=== PATIENT | male | born 1985 | race Caucasian/White ===

== ENCOUNTER 2017-03-22 01:03 | Emergency (ER) | payer SELFPAY ==
[~2017-03-22] VITALS: Ht 170.2 cm; Wt 100.0 kg
[2017-03-22] MEDS ORDERED: MAGNESIUM/ALUMINUM HYDROXIDE/SIMETHICONE 30ML UDC PO STA (01:30)
[2017-03-22] MEDS ORDERED: VISCOUS LIDOCAINE 2% 15 ML UDC PO STA (01:30)
[2017-03-22 01:44] LABS: CLARITY URINE CLOUDY (CLEAR); COLOR URINE YELLOW (YELLOW); GLUCOSE URINE NEGATIVE (NEGATIVE); KETONES URINE NEGATIVE (NEGATIVE); LEUKOCYTE ESTERASE URINE NEGATIVE (NEGATIVE); NITRITE URINE NEGATIVE (NEGATIVE); OCCULT BLOOD URINE NEGATIVE (NEGATIVE); PROTEIN URINE NEGATIVE (NEGATIVE); SPECIFIC GRAVITY URINE 1.029 (1.005-1.030)
[2017-03-22 01:51] LABS: BASOPHILS % 0.7 % (0.0-2.0); EOSINOPHILS % 4.8 % (0.0-5.0); HEMATOCRIT. 43.1 % (42.0-52.0); HEMOGLOBIN. 14.4 g/dL (14.0-18.0); LYMPHOCYTES % 39.4 % (20.0-50.0); MEAN CORPUSCULAR VOLUME 89.4 fL (80.0-94.0); MEAN PLATELET VOLUME 8.4 fl (7.4-10.4); NEUTROPHILS % 48.1 % (40.0-76.0); PLATELET 206 x1000/uL (130-400); RED BLOOD CELL COUNT 4.82 mill/uL (4.7-6.1)
[2017-03-22 01:56] LABS: CHLORIDE 106 mEq/L (98-107)
[2017-03-22 02:09] LABS: CARBON DIOXIDE 29 mEq/L (21-32)
[2017-03-22 03:25] VITALS: BP 127/79
== END 2017-03-22 03:30 | disposition home or self-care (01) ==
LOC: ER 01:03
DX: K21.9 Gastro-esophageal reflux disease without esophagitis (principal)
CPT/HCPCS: 36415; 80053; 81001; 83690; 85025; 99284

== ENCOUNTER 2017-04-05 18:13 | Emergency (ER) | payer SELFPAY ==
[~2017-04-05] VITALS: Ht 180.3 cm; Wt 92.0 kg
[2017-04-05 18:34] VITALS: BP 182/98
== END 2017-04-05 19:30 | disposition left against medical advice (07) ==
LOC: ER 18:13
DX: R10.9 Unspecified abdominal pain (principal); Z53.21 Procedure and treatment not carried out due to patient leaving prior to being seen by health care provider

== ENCOUNTER 2017-04-10 03:36 | Emergency (ER) | payer SELFPAY ==
[~2017-04-10] VITALS: Ht 180.3 cm; Wt 98.0 kg
[2017-04-10 09:41] VITALS: BP 144/97
== END 2017-04-10 09:47 | disposition home or self-care (01) ==
LOC: ER 04:07
DX: K52.9 Noninfective gastroenteritis and colitis, unspecified (principal)
CPT/HCPCS: 99283

== ENCOUNTER 2023-09-18 12:30 | Emergency (ER) | payer MEDICAID ==
[~2023-09-18] VITALS: Ht 177.8 cm; Wt 114.0 kg
[2023-09-18 12:35] VITALS: O2SAT 98
[2023-09-18 14:03] VITALS: PULSE 73; TEMP 98.1
[2023-09-18] MEDS: ACETAMINOPHEN 325MG TABLET PO ONE (14:03)
[2023-09-18] MEDS: IBUPROFEN 400MG TABLET PO ONE (14:03)
[2023-09-18 14:04] VITALS: BP 145/74; RESP 19
[2023-09-18] MEDS: LIDOCAINE 5% PATCH TOP SCH (14:04)
[2023-09-18] MEDS ORDERED: LIDO700A30 TP (14:10)
== END 2023-09-18 14:22 | disposition home or self-care (01) ==
LOC: ER 12:30
DX: R07.81 Pleurodynia (principal); K21.9 Gastro-esophageal reflux disease without esophagitis
CPT/HCPCS: 71111; 99284

== ENCOUNTER 2024-01-22 17:13 | Emergency (ER) | payer OTHER ==
[~2024-01-22] VITALS: Ht 177.8 cm; Wt 109.0 kg
[~2024-01-22 17:13] MED LIST: LIDO700A30 TP
[2024-01-22 17:21] VITALS: TEMP 98.4; O2SAT 98
[2024-01-22 19:32] LABS: BASOPHILS % 0.6 % (0.0-2.0); EOSINOPHILS % 4.3 % (0.0-5.0); HEMATOCRIT. 41.3 % (42.0-52.0); LYMPHOCYTES % 20.4 % (20.0-50.0); MEAN CORPUSCULAR HEMOGLOBIN 31.2 pg (28.0-32.0); MEAN CORPUSCULAR VOLUME 91.9 fL (80.0-94.0); MEAN PLATELET VOLUME 8.6 fl (7.4-10.4); MONOCYTES % 6.9 % (2.0-8.0); NEUTROPHILS % 67.8 % (40.0-76.0); PLATELET 196 x1000/uL (130-400); RED BLOOD CELL COUNT 4.49 mill/uL (4.7-6.1); RED CELL DISTRIBUTION WIDTH 13.8 % (11.6-14.6); WHITE BLOOD COUNT 6.9 x1000/uL (4.5-11.0)
[2024-01-22 19:39] LABS: CHLORIDE 107 mEq/L (98-107); POTASSIUM 4.1 mEq/L (3.5-5.1); SODIUM 139 mEq/L (136-145)
[2024-01-22 19:40] LABS: CALCIUM 9.2 mg/dL (8.7-10.4); CARBON DIOXIDE 28 mEq/L (21-32)
[2024-01-22 19:45] LABS: CREATININE 1.2 mg/dL (0.6-1.3); GLUCOSE 98 mg/dL (70-105); UREA NITROGEN BLOOD 12 mg/dL (9-23)
[2024-01-22 19:48] LABS: PROTHROMBIN TIME 10.8 sec (9.6-11.0)
[2024-01-22 20:14] LABS: TROPONIN I HIGH SENSITIVITY < 4 ng/L (3.0-53)
[2024-01-22] MEDS ORDERED: IBUP-2030 MT (20:31)
[2024-01-22 21:13] VITALS: BP 162/99; PULSE 82; RESP 18
[2024-01-22] MEDS: IBUPROFEN 800MG TABLET PO ONE (21:13)
== END 2024-01-22 21:15 | disposition home or self-care (01) ==
LOC: ER 17:13
DX: R51.9 Headache, unspecified (principal); K21.9 Gastro-esophageal reflux disease without esophagitis; Z90.49 Acquired absence of other specified parts of digestive tract
CPT/HCPCS: 36415; 70486; 71045; 80048; 84484; 85025; 93005; 99285